=== PATIENT | female | born 1985 | race Caucasian/White ===

== ENCOUNTER → 2016-07-01 | Outpatient (CLI) | payer OTHER ==
[~2016-07-01] MED LIST: MTR600X PO; OXYC5TAB PO; PRENTAB26 PO
== END | disposition home or self-care (01) ==
LOC: C.LAB 14:15
PROVIDERS: ATTEND Obstetrics & Gynecology
DX: E28.8 Other ovarian dysfunction (principal)

== ENCOUNTER → 2016-08-01 | Outpatient (CLI) | payer OTHER | END | disposition home or self-care (01) | LOC: C.LAB 16:59 | PROVIDERS: ATTEND Obstetrics & Gynecology | DX: E28.8 Other ovarian dysfunction (principal) ==

== ENCOUNTER → 2016-08-27 | Outpatient (CLI) | payer OTHER | END | disposition home or self-care (01) | LOC: C.LAB 10:25 | PROVIDERS: ATTEND Obstetrics & Gynecology | DX: E28.8 Other ovarian dysfunction (principal) ==

== ENCOUNTER → 2016-09-21 | Outpatient (CLI) | payer OTHER | END | disposition home or self-care (01) | LOC: C.LAB 16:14 | PROVIDERS: ATTEND Obstetrics & Gynecology | DX: E28.8 Other ovarian dysfunction (principal) ==

== ENCOUNTER → 2016-10-20 | Outpatient (CLI) | payer OTHER | END | disposition home or self-care (01) | LOC: C.LAB 15:56 | PROVIDERS: ATTEND Obstetrics & Gynecology | DX: E28.8 Other ovarian dysfunction (principal) ==

== ENCOUNTER → 2016-11-14 | Outpatient (CLI) | payer OTHER | END | disposition home or self-care (01) | LOC: C.LAB 17:35 | PROVIDERS: ATTEND Obstetrics & Gynecology | DX: E28.8 Other ovarian dysfunction (principal) ==

== ENCOUNTER → 2016-12-06 | Outpatient (CLI) | payer OTHER | END | disposition home or self-care (01) | LOC: C.LAB 19:10 | PROVIDERS: ATTEND Obstetrics & Gynecology | DX: E28.8 Other ovarian dysfunction (principal) ==

== ENCOUNTER → 2016-12-06 | Outpatient (CLI) | payer OTHER ==
[2016-12-06 19:53] LABS: HEMATOCRIT 40.4 % (37-47); MEAN CELL VOLUME 83.5 fL (80-100); MEAN CORPUSCULAR HEMOGLOBIN 26.9 pg (25-34); MEAN CORPUSCULAR HGB CONC 32.2 g/dl (32-36); MEAN PLATELET VOLUME 11.3 fL (7.4-10.4); PLATELET COUNT 231 K/uL (130-400); RED BLOOD COUNT 4.84 M/uL (4.2-5.4); WHITE BLOOD COUNT 4.75 K/uL (4.8-10.8)
[2016-12-06 20:58] LABS: RUBELLA SCREEN IgG (AT CCH) IMMUNE (IMMUNE)
[2016-12-07 07:26] LABS: ESTIMATED AVERAGE GLUCOSE 111 mg/dl; HA1C FLAG Normal (Normal)
[2016-12-09 17:19] LABS: HEPATITIS C VIRAL RNA BY PCR <15 NOT DETECTED IU/ML (<15); HEPATITIS C VIRAL RNA(LOG) PCR <1.18 NOT DETECTED LOG IU/ML (<1.18)
== END | disposition home or self-care (01) ==
LOC: C.LAB 19:06
PROVIDERS: ATTEND Obstetrics & Gynecology Reproductive Endocrinology
DX: Z01.83 Encounter for blood typing (principal); Z31.41 Encounter for fertility testing; Z11.59 Encounter for screening for other viral diseases; Z11.3 Encounter for screening for infections with a predominantly sexual mode of transmission; Z11.4 Encounter for screening for human immunodeficiency virus [HIV]; E28.2 Polycystic ovarian syndrome; Z13.0 Encounter for screening for diseases of the blood and blood-forming organs and certain disorders involving the immune mechanism; Z13.21 Encounter for screening for nutritional disorder

== ENCOUNTER → 2017-01-02 | Outpatient (CLI) | payer OTHER | END | disposition home or self-care (01) | LOC: C.LAB 16:24 | PROVIDERS: ATTEND Obstetrics & Gynecology | DX: E28.8 Other ovarian dysfunction (principal) ==

== ENCOUNTER → 2017-03-15 | Outpatient (CLI) | payer OTHER ==
--- NOTE | 2017-03-15 11:41 | HISTORY & PHYSICAL EXAMINATION ---
DATE OF ADMISSION: 03/15/2017 INDICATIONS FOR SURGERY: Pelvic pain, irregular bleeding. PREOPERATIVE DIAGNOSIS: Dysfunctional uterine bleeding. POSTOPERATIVE DIAGNOSIS: Spillage right side and filling of the left fallopian tube. PROCEDURE: Hysterosalpingogram. SURGEON: Dr. Stanley. ESTIMATED BLOOD LOSS: None. OPERATIVE FINDINGS AND PROCEDURE: The patient was brought to the fluoroscopy unit. Cervix was visualized with a speculum. Cervix was then painted with Betadine solution. Anterior lip of the cervix was grasped with single tooth tenaculum. A sound was used to open up the endocervical canal, then an acorn cannula with hystersalpingogram dye was placed into the cervix and held there with a single tooth tenaculum to make a seal. Then under fluoroscopy, the dye was injected. The dye actually went slowly and under a lot of pressure we were able to see the right fallopian tube and it spilled. On the left side basically the whole fallopian tube filled but didn't quite spill. Following several efforts to get the tubes to spill with using pressure on the syringe the procedure was terminated. Instruments were removed. The patient tolerated the procedure well.
--- NOTE | 2017-03-15 11:44 | DIAGNOSTIC IMAGING REPORT ---
HYSTEROSALPINGOGRAM HISTORY: Infertility. FLUOROSCOPY TIME: 1.7 minutes. 7 fluoroscopic spot images. TECHNIQUE: The cervix was cannulated by the novelty dipper-metallographic technician and water soluble contrast was instilled into the uterus under fluoroscopic guidance. Multiple spot images were obtained. FINDINGS: The uterine cavity is normal in size, shape, and position. The fallopian tubes are patent and there is free peritoneal spill on the right. Probable free spill on the left.. IMPRESSION: Normal hysterosalpingogram. Electronically signed by: Andrea Mcnally M.D. 03/15/2017 11:43 AM Dictated Date/Time: 03/15/2017 11:42 AM
== END | disposition home or self-care (01) ==
LOC: C.RAD 11:02
PROVIDERS: ATTEND Obstetrics & Gynecology
DX: N97.9 Female infertility, unspecified (principal)

== ENCOUNTER → 2017-04-01 | Outpatient (CLI) | payer OTHER | END | disposition home or self-care (01) | LOC: C.LAB 07:45 | PROVIDERS: ATTEND Obstetrics & Gynecology | DX: Z34.81 Encounter for supervision of other normal pregnancy, first trimester (principal) ==

== ENCOUNTER → 2017-04-03 | Outpatient (CLI) | payer OTHER ==
[~2017-04-03] MED LIST changes: +CHOL100010
--- NOTE | 2017-04-07 11:17 | CODING QUERY NO DIAGNOSIS ---
TREATMENT RENDERED WITHOUT A DIAGNOSIS To promote full compliance with coding requirements relating to patient care, physician participation is requested in all cases of shingle cutter uncertainty. Please assist us with providing a diagnosis/symptom for the test(s) below: A diagnosis/symptom was not documented on your Order. A valid diagnosis/symptom is required to bill all insurances. Please remember that we are unable to code a diagnosis of rule out, probable, possible, questionable, or suspected. Tests that require a diagnosis from 04/03/17: * BETA HCG DIAGNOSIS: Provider Signature: Date: Thank you Sophie Villanueva [facility] Information Management Once completed, please kindly fax back to [phone] For questions please call [phone]
== END ==
LOC: C.LAB 07:51
PROVIDERS: ATTEND Obstetrics & Gynecology
DX: O00.90 Unspecified ectopic pregnancy without intrauterine pregnancy (principal)

== ENCOUNTER → 2017-04-05 | Outpatient (CLI) | payer OTHER ==
[~2017-04-05] MED LIST changes: -CHOL100010
== END | disposition home or self-care (01) ==
LOC: C.LAB 08:11
PROVIDERS: ATTEND Obstetrics & Gynecology
DX: Z34.81 Encounter for supervision of other normal pregnancy, first trimester (principal)

== ENCOUNTER → 2017-04-07 | Outpatient (CLI) | payer OTHER | END | disposition home or self-care (01) | LOC: C.LAB 08:15 | PROVIDERS: ATTEND Obstetrics & Gynecology | DX: O00.109 Unspecified tubal pregnancy without intrauterine pregnancy (principal) ==

== ENCOUNTER → 2017-04-10 | Outpatient (CLI) | payer OTHER | END | disposition home or self-care (01) | LOC: C.LAB 08:22 | PROVIDERS: ATTEND Obstetrics & Gynecology | DX: O00.109 Unspecified tubal pregnancy without intrauterine pregnancy (principal) ==

== ENCOUNTER → 2017-04-12 | Outpatient (CLI) | payer OTHER | END | disposition home or self-care (01) | LOC: C.LAB 07:18 | PROVIDERS: ATTEND Obstetrics & Gynecology | DX: O00.90 Unspecified ectopic pregnancy without intrauterine pregnancy (principal) ==

== ENCOUNTER → 2017-04-14 | Outpatient (CLI) | payer OTHER ==
[2017-04-14 10:56] LABS: BASO % 0.2 %; BASO ABS # 0.01 K/uL (0-0.2); EOS % 1.7 %; EOS ABS # 0.07 K/uL (0-0.5); HEMATOCRIT 38.4 % (37-47); HEMOGLOBIN 12.7 g/dL (12.0-16.0); LYMPH % 41.7 %; LYMPH ABS # 1.74 K/uL (1.2-3.4); MEAN CELL VOLUME 82.1 fL (80-100); MEAN CORPUSCULAR HEMOGLOBIN 27.1 pg (25-34); MEAN CORPUSCULAR HGB CONC 33.1 g/dl (32-36); MEAN PLATELET VOLUME 11.1 fL (7.4-10.4); MONO % 6.5 %; MONO ABS # 0.27 K/uL (0.11-0.59); NEUT % 49.9 %; NEUT ABS # 2.08 K/uL (1.4-6.5); PLATELET COUNT 229 K/uL (130-400); RED CELL DISTRIBUTION WIDTH CV 13.4 % (11.5-14.5); RED CELL DISTRIBUTION WIDTH SD 40.6 fL (36.4-46.3); WHITE BLOOD COUNT 4.17 K/uL (4.8-10.8)
[2017-04-14 11:11] LABS: ALBUMIN 3.4 gm/dl (3.4-5.0); ALT/SGPT 25 U/L (12-78); AST/SGOT 11 U/L (15-37); BLOOD UREA NITROGEN 8 mg/dl (7-18); CALCIUM 8.6 mg/dl (8.5-10.1); CARBON DIOXIDE 23 mmol/L (21-32); CREATININE 0.44 mg/dl (0.60-1.20); GLUCOSE 91 mg/dl (70-99); POTASSIUM 3.7 mmol/L (3.5-5.1); SODIUM 136 mmol/L (136-145)
[2017-04-14 11:21] LABS: ALKALINE PHOSPHATASE 39 U/L (45-117); TOTAL PROTEIN 7.2 gm/dl (6.4-8.2)
[2017-04-15 02:29] LABS: RAPID PLASMA REAGIN NONREACTIVE (NONREACT)
== END | disposition home or self-care (01) ==
LOC: C.LAB 08:28
PROVIDERS: ATTEND Obstetrics & Gynecology
DX: O00.90 Unspecified ectopic pregnancy without intrauterine pregnancy (principal); R41.89 Other symptoms and signs involving cognitive functions and awareness; R51 Headache; G57.11 Meralgia paresthetica, right lower limb; M54.2 Cervicalgia; R13.10 Dysphagia, unspecified

== ENCOUNTER → 2017-04-17 | Outpatient (CLI) | payer OTHER ==
[~2017-04-17] VITALS: Ht 162.6 cm; Wt 104.3 kg
[~2017-04-17] MED LIST changes: +CHOL100010; +METHOTREXATE SOD IM SCH
== END | disposition home or self-care (01) ==
LOC: C.LAB 18:17
PROVIDERS: ATTEND Obstetrics & Gynecology
DX: O00.90 Unspecified ectopic pregnancy without intrauterine pregnancy (principal)

== ENCOUNTER → 2017-04-18 | Outpatient (CLI) | payer OTHER ==
[~2017-04-18] MED LIST changes: -METHOTREXATE SOD IM SCH
[2017-04-18 17:26] LABS: HEMATOCRIT 40.3 % (37-47); HEMOGLOBIN 13.1 g/dL (12.0-16.0)
[2017-04-18 18:02] LABS: ALBUMIN 3.5 gm/dl (3.4-5.0); ALKALINE PHOSPHATASE 37 U/L (45-117); ALT/SGPT 19 U/L (12-78); AST/SGOT 9 U/L (15-37); TOTAL PROTEIN 7.4 gm/dl (6.4-8.2)
== END | disposition home or self-care (01) ==
LOC: C.LAB 17:05
PROVIDERS: ATTEND Obstetrics & Gynecology
DX: O00.90 Unspecified ectopic pregnancy without intrauterine pregnancy (principal)

== ENCOUNTER → 2017-04-19 | Day surgery (SDC) | payer OTHER ==
[~2017-04-19] VITALS: Ht 162.6 cm; Wt 97.0 kg
[~2017-04-19] MED LIST changes: +METHOTREXATE SOD IM SCH
[2017-04-19 11:13] VITALS: BP 111/59; PULSE 80; TEMP 36.9; O2SAT 98; Ht 162.6 cm; Wt 97.0 kg
--- NOTE | 2017-04-19 11:18 | HISTORY & PHYSICAL EXAMINATION ---
DATE OF ADMISSION: 04/19/2017 CHIEF COMPLAINT: Unruptured ectopic , left fallopian tube. HISTORY OF PRESENT ILLNESS: The patient is a 30-year-old 3, para 2. She has had 1 previous spontaneous AB. General health is complicated by polycystic ovarian syndrome. She is an infrequent ovulator. Present was achieved with a combination of Clomid and Femara. She has had serial beta hCGs going back to April 01. It should be noted that on 03/15/2017, she had a hysterosalpingogram, which was normal. Her beta units started out at 33 and they basically hovered ever since then. Presently, her progesterone levels are falling. Her beta units are in the range of about 250. She had an ultrasound done on 04/18/2017, which showed an area adjacent to the left ovary that appeared to be a gestational sac, which was 1 cm in diameter. There were no heartbeats. She is presently being admitted for outpatient methotrexate injection, calculated 15 mg per meters squared, dose calculated out to 109 mg. SOCIAL HISTORY: No history of smoking. No history of excessive alcohol intake. She is employed. FAMILY HISTORY: Mom is 58, has diabetes. Father 67, high blood pressure, heart disease, and she has 1 brother. REVIEW OF SYSTEMS: No history of headaches, ear infections, nosebleed, sore throats. PHYSICAL EXAMINATION: GENERAL: Well-developed, well-nourished 32-year-old female, alert, oriented x3 and cooperative in no acute distress, appears stated age. EYES: Conjunctivae are pink, sclerae white, no evidence of jaundice. EARS: Had normal light reflex bilaterally. NOSE: Had normal mucosa. Septum is midline. There were no polyps. THROAT: No erythema or evidence of infection. Teeth are in good state of repair. HEAD: Normocephalic, normal distribution of hair. NECK: Supple. Trachea midline. Thyroid is not enlarged. No adenopathy appreciated. HEART: Had regular rhythm. S1, S2 were normal. BREASTS: Normal. ABDOMEN: Soft and nontender. PELVIC: Cervix appeared normal. Uterus was top normal size. MUSCULOSKELETAL: Revealed no calf tenderness. IMPRESSIONS OF THIS CASE: Left-sided ectopic , unruptured. [facility]
== END | disposition home or self-care (01) ==
LOC: C.MTU 13:00
PROVIDERS: ATTEND Obstetrics & Gynecology
DX: O00.102 Left tubal pregnancy without intrauterine pregnancy (principal); E28.2 Polycystic ovarian syndrome; Z83.3 Family history of diabetes mellitus

== ENCOUNTER → 2017-04-27 | Outpatient (CLI) | payer OTHER ==
[~2017-04-27] MED LIST changes: -METHOTREXATE SOD IM SCH; -OXYC5TAB PO
== END | disposition home or self-care (01) ==
LOC: C.LAB 18:11
PROVIDERS: ATTEND Obstetrics & Gynecology
DX: O00.90 Unspecified ectopic pregnancy without intrauterine pregnancy (principal)

== ENCOUNTER → 2017-05-04 | Outpatient (CLI) | payer OTHER | END | disposition home or self-care (01) | LOC: C.LAB 16:58 | PROVIDERS: ATTEND Obstetrics & Gynecology | DX: O00.90 Unspecified ectopic pregnancy without intrauterine pregnancy (principal); Z3A.00 Weeks of gestation of pregnancy not specified ==

== ENCOUNTER → 2017-05-05 | Outpatient (CLI) | payer OTHER ==
--- NOTE | 2017-05-05 12:03 | DIAGNOSTIC IMAGING REPORT ---
BRAIN COMBO CLINICAL HISTORY: R41.89 Cognitive [id number] Unilateral [id number] posttraumatic headaches COMPARISON STUDY: No previous studies for comparison. TECHNIQUE: Utilizing a 1.5 Tonya magnet and dedicated coil, multiplanar, multiecho imaging of the brain was performed pre and postcontrast administration. IV administration of 10 mL of Gadavist contrast was uneventful. FINDINGS: Diffusion-weighted images show no evidence for an acute ischemic event. Signal characteristics of the cerebellar as well as cerebral hemispheres are unremarkable. Ventricular system is midline. Postcontrast images are negative for an enhancing lesion. The sella and suprasellar regions are unremarkable. Internal auditory canals are symmetric. Incidental note is made of mucous retention cysts of the sphenoid and maxillary sinuses bilaterally. IMPRESSION: 1. Normal MRI of the brain. 2. Mucous retention cysts of the sphenoid and maxillary sinuses bilaterally The above report was generated using voice recognition software. It may contain grammatical, syntax or spelling errors. Electronically signed by: Gurwinder Silva M.D. 05/05/2017 12:02 PM Dictated Date/Time: 05/05/2017 11:58 AM
== END | disposition home or self-care (01) ==
LOC: C.MRI 10:35
PROVIDERS: ATTEND Psychiatry & Neurology Neurology
DX: R41.89 Other symptoms and signs involving cognitive functions and awareness (principal); R51 Headache; J34.1 Cyst and mucocele of nose and nasal sinus

== ENCOUNTER → 2017-07-08 | Outpatient (CLI) | payer OTHER | END | disposition home or self-care (01) | LOC: C.LAB 12:46 | PROVIDERS: ATTEND Psychiatry & Neurology Neurology | DX: R53.83 Other fatigue (principal); E55.9 Vitamin D deficiency, unspecified ==

== ENCOUNTER → 2017-10-26 | Outpatient (CLI) | payer OTHER | END | disposition home or self-care (01) | LOC: C.LAB 14:54 | PROVIDERS: ATTEND Obstetrics & Gynecology | DX: E28.8 Other ovarian dysfunction (principal); E55.9 Vitamin D deficiency, unspecified ==

== ENCOUNTER 2019-03-22 15:49 | Inpatient (IN) ==
--- OUTSIDE RECORDS SUMMARY | 2019-03-22 15:52 | External Medical Summary | Continuity of Care Document ---
:1985 Author Name Gurinder Murillo, Provider Address Unavailable Unavailable , Care Team Providers Name Role Phone Junie Palencia III, M.D.. PNeris Unavailable [email or web address] SandraG Chidi Unavailable [email or web address] MAY, E Unavailable Unavailable Unavailable Unavailable Unavailable Problems History of delivery, currently p regnant in third trimester (V23.41) (O09.213) Obesity complicating peripregnancy, antepartum (649.13) (O99 .210) H/O section (V45.89) (Z98.891) with history of caesarean section, antepartum (654 .23) (O34.21) Meralgia paresthetica of right side (355.1) (G57.11) Neck pain (723.1) (M54.2) Anxiety (300.00) (F41.9) PCOS (polycystic ovarian syndrome) (256.4) (E28.2) Fatigue (780.79) (R53.83) Dysphagia, unspecified (787.20) (R13.10) Cognitive impairment (294.9) (R41.89) PTSD (post-traumatic stress disorder) (309.81) (F43.10) Unilateral headache (784.0) (R51) Vitamin D deficiency (268.9) (E55.9) Allergies and Adverse Reactions No Known Drug Allergies (Allergy) Medications Plus TABS; TAKE 1 TABLET DAILY. Refills: 0 Tums CHEW Refills: 0 Vitamin C CAPS; TAKE 1 CAPSULE Daily Refills: 0 Vitamin D3 1.25 MG (48252 UT) Oral Tablet; TAKE 1 TABL ET Weekly Talha MCKEON M.D. E. P. Start: 14-Apr-2017 Quantity: 4 Refills: 2 Vitamin D3 50 MCG (2000 UT) Oral Capsule; TAKE 2 CAPSULE Soha ly Refills: 0 Procedures History of Section Status: Comp leted Immunizations Tdap (Adacel) On: 28-Nov-2014 Lot #: [id number], SANOFI PASTEUR Influenza (Whole) On: 12-Dec-2014 15:01 Lot #: [id number], [employer]OFI PA[employer]UR Family History Unknown Family Member Family history of malignant neoplasm of Status: Active Comments: Family History breast (V16.3) (Z80.3) Brother Family history of autism (V17.0) (Z81.8) Status: Active Mother Family history of gestational diabetes (V18.0) (Z83.3) Statu s: Active Social History - Smoking Status Never smoker Plan of Treatment Planned Observations Planned Goals not documented Results No Known Results Results not documented Encounters Appointment; Akua Galloway PA-C 12-Jul-2017 16:00 Encounter Diagnosis: Problem not documented Appointment; Akua Galloway PA-C 12-May-2017 9:30 Encounter Diagnosis: Problem not documented Appointment; Cruz Palencia III, M.D. 12-Apr-2017 8:00 Encounter Diagnosis: Problem not documented
--- OUTSIDE RECORDS SUMMARY | 2019-03-22 15:52 | External Medical Summary | Continuity of Care Document ---
:1985 Author Name Gurinder Murillo, Provider Address Unavailable Unavailable , Care Team Providers Name Role Phone Junie Palencia III, M.D.. PNeris Unavailable [email or web address] Chidi Unavailable [email or web address] Junie MAY Unavailable Unavailable Unavailable Unavailable Unavailable Problems PCOS (polycystic ovarian syndrome) (256.4) (E28.2) Dysphagia, unspecified (787.20) (R13.10) Vitamin D deficiency (268.9) (E55.9) Fatigue (780.79) (R53.83) Anxiety (300.00) (F41.9) Neck pain (723.1) (M54.2) Meralgia paresthetica of right side (355.1) (G57.11) with history of caesarean section, antepartum (654 .23) (O34.21) H/O section (V45.89) (Z98.891) Obesity complicating peripregnancy, antepartum (649.13) (O99 .210) History of delivery, currently p regnant in third trimester (V23.41) (O09.213) Unilateral headache (784.0) (R51) PTSD (post-traumatic stress disorder) (309.81) (F43.10) Cognitive impairment (294.9) (R41.89) Allergies and Adverse Reactions No Known Drug Allergies (Allergy) Medications Tums CHEW Refills: 0 Vitamin C CAPS; TAKE 1 CAPSULE Daily Refills: 0 Vitamin D3 50 MCG (2000 UT) Oral Capsule; TAKE 2 CAPSULE Soha ly Refills: 0 Plus TABS; TAKE 1 TABLET DAILY. Refills: 0 Vitamin D3 1.25 MG (70757 UT) Oral Tablet; TAKE 1 TABL ET Weekly Talha MCKEON M.D. E. PNeris Start: 14-Apr-2017 Quantity: 4 Refills: 2 Procedures History of Section Status: Comp leted Immunizations Tdap (Adacel) On: 28-Nov-2014 Lot #: [id number], [employer]FI PA[employer]UR Influenza (Whole) On: 12-Dec-2014 15:01 Lot #: [id number], SANOFI PASTEUR Family History Unknown Family Member [...]
[2019-03-22 17:03] LABS: Partial Thromboplastin Ratio 0.9; Partial Thromboplastin Time 23.8 Seconds (21.0-31.0); Prothrombin Time 10.6 Seconds (9.0-12.0)
[2019-03-22 17:05] LABS: D Dimer 22390 ug/L FEU (0-500)
[2019-03-22 17:20] LABS: Basophils # (auto) 0.04 K/uL (0-0.2); Basophils % (auto) 0.5 %; Eosinophils # (auto) 0.18 K/uL (0-0.5); Eosinophils % (auto) 2.3 %; Hematocrit (blood only) 39.6 % (37-47); Hemoglobin 13.4 g/dL (12.0-16.0); Immature Granulocytes # (auto) 0.08 K/uL (0.00-0.02); Lymphocytes # (auto) 1.82 K/uL (1.2-3.4); Lymphocytes % (auto) 22.9 %; Mean Corpuscular Hemoglobin 26.7 pg (25-34); Mean Corpuscular Hgb Conc 33.8 g/dL (32-36); Mean Corpuscular Volume 78.9 fL (80-100); Mean Platelet Volume 10.2 fL (7.4-10.4); Monocytes # (auto) 0.45 K/uL (0.11-0.59); Monocytes % (auto) 5.7 %; Neutrophils # (auto) 5.39 K/uL (1.4-6.5); Neutrophils % (auto) 67.6 %; Platelet Count 185 K/uL (130-400); RDW Coefficient of Variation 13.3 % (11.5-14.5); RDW Standard Deviation 37.9 fL (36.4-46.3); Red Blood Count 5.02 M/uL (4.2-5.4); White Blood Count 7.96 K/uL (4.8-10.8)
[2019-03-22 17:45] LABS: Albumin Level 3.4 gm/dl (3.4-5.0); BUN Creatinine Ratio 14.1 (10-20); Calcium 8.8 mg/dl (8.5-10.1); Creatinine Clr Calc Pharmacy 146.1 ml/min; Est GFR (African American) 132.9; Est GFR (Non-African American) 114.7; Potassium 3.8 mmol/L (3.5-5.1)
--- NOTE | 2019-03-22 17:53 | Emergency Department Note ---
History of Present Illness General Chief complaint: Leg Injury/Pain Stated complaint: CRAMP IN THIGH AND CALF, WINDED Time Seen by Provider: 03/22/19 17:00 History of Present Illness Maximum Pain Intensity: 4 34-year-old female who presents to emergency department with complaint of shortn ess of breath, dyspnea on exertion and right lower extremity cramping. The patient reports that she started to develop intermittent nosebleeds approximately 2 to 3 weeks ago. She reports that this is abnormal for the patient. Around March 16, the patient reports developing a cramping sensation of the right inner thigh that lasted approximately 3 days, then completely resolved. The pain then was transferred to the right calf. The pain initially was an 8 out of 10, then started to improve to a 4 out of 10. After the 5 pain resolved, the patient then started to get shortness of breath and dyspnea on exertion. She reports that after walking up a full flight of stairs, she would have to stop and rest. This is also atypical for the patient. 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 She denies any oral contraceptive use. She has a remote history of CBD vaping for PTSD, however has not Vapes within the past year. She reports that her maternal grandfather did have a history of blood clots and stroke, otherwise is not aware of any other known family history of coagulopathies. The patient denies any swelling of the legs. She has noticed a sharp sensation of the right lateral chest region. She has not had any nausea or diaphoresis. The patient currently rates her overall discomfort a 4 out of 10. Home Medications Home Medications Medication Instructions Recorded Confirmed Type No Known Home Medications 03/22/19 03/22/19 History Allergies Allergy/AdvReac Type Severity Reaction Status Date / Time sesame seed Allergy Severe Anaphylaxis Verified 03/22/19 17:51 Past Med/Surg History Medical History History of PCOS PTSD (post-traumatic stress disorder) Pulmonary embolism Surgical History History of delivery Family History Other Diabetes Dyslipidemia Hypertension Stroke Social History Preferred Language: Serbian Communication Ability: Effective [employer] Tube Bender Required: No Beliefs That Will Affect Care: None marital status: Current Living Situation: Spouse current occupational status: employed Feels Safe at Home: Yes Smoking Status: Never smoker Hx Alcohol Use: No Hx Substance Use: No Review of Systems 10 system review was performed and was negative except for pertinent positives and negatives as indicated in history of present illness Physical Exam Vital Signs Vital Signs - 24 hr 03/22/19 15:51 03/22/19 17:15 03/22/19 17:30 Temperature 36.6 C Temperature Source Oral Pulse Rate 121 H 105 H 107 H Pulse Rate from SpO2 Sensor 105 H 108 H Pulse Rhythm Regular Regular Pulse Strength Normal Respiratory Rate 22 22 29 H Respiratory Effort / Characteristics Non-Labored Spontaneous Non-Labored Spontaneous Respiratory Depth Normal Normal Respiratory Pattern Regular Regular Blood Pressure 107/78 128/89 129/93 Blood Pressure Mean 87 98 98 Blood Pressure Position Sitting Pulse Oximetry 96 92 93 Oxygen Delivery Method Room Air Room Air Room Air Sepsis Recent Fever Within 48 Hours No Sepsis New/Unexplained Change in Mental Status No Sepsis Action Taken by Nursing No Action Required 03/22/19 18:47 03/22/19 19:00 03/22/19 19:30 Temperature Temperature Source Pulse Rate 109 H 105 H 106 H Pulse Rate from SpO2 Sensor 106 H 107 H 107 H Pulse Rhythm Pulse Strength Respiratory Rate 16 21 17 Respiratory Effort / Characteristics Respiratory Depth Respiratory Pattern Blood Pressure 110/88 144/78 H 134/77 Blood Pressure Mean 97 113 106 Blood Pressure Position Pulse Oximetry 92 95 94 Oxygen Delivery Method Room Air Room Air Room Air Sepsis Recent Fever Within 48 Hours Sepsis New/Unexplained Change in Mental Status Sepsis Action Taken by Nursing CONSTITUTIONAL: Healthy and well nourished. Alert and oriented X 3. Patient does not appear in any acute distress on exam. HEENT: Normocephalic, atraumatic. Pupils equal, round and reactive. No scleral icterus or conjunctival injection/pallor. NECK: Full active range of motion without discomfort. No JVD or carotid bruits. LYMPHATICS: No cervical chain adenopathy. RESPIRATORY: Clear to auscultation bilaterally with no wheezing, crackles, rhonchi or stridor. She does not appear in any acute respiratory distress. CARDIOVASCULAR: Regular rate and rhythm with no murmurs, rubs or gallops. GASTROINTESTINAL: Bowel sounds present in all quadrants. Abdomen is protuberant but soft and nontender to palpation. No bruits on auscultation. MUSCULOSKELETAL: Full range of motion of all joints without discomfort. Examination of the lower extremities does not show any obvious edema. Pedal pulses are intact. INTEGUMENTARY: No rash or other significant dermatologic conditions noted. HEMATOLOGIC: No ecchymosis or petechiae. PSYCHIATRIC: Positive affect. NEUROLOGIC: No focal neurologic deficits noted. Course Course Patient history and physical exam were performed. Nurse's notes were reviewed. Vital signs were reviewed. The patient is tachycardic in triage at 107 bpm, and tachypneic at 29 respirations per minute with an O2 saturation of 93% on room air. She is otherwise normotensive and afebrile. IV access was established, and labs were ordered and drawn per nursing protocol prior to my exam. I was contacted by our ED leases and land supervisor that the patient's d-dimer was nearly 23,000. After performing an examination on the patient, I did recommend CT angiography and bilateral lower extremity Dopplers to rule out PE and DVTs of the lower ext remities. The patient was in agreement. Cardiac monitoring was ordered. An ECG showed a sinus tachycardia without any other concerning findings. Review of labs shows a normal white count with bandemia and no left shift. PT, PTT and INR are normal. D-dimer was significantly elevated at 22,390. CMP was normal. Troponin was mildly elevated at 0.052. An ECG showed a sinus tachycardia without other concerning findings. CT angiography of the chest shows extensive bilateral pulmonary emboli with right heart strain. Possible left upper lobe pulmonary infarct is also noted. Bilateral lower extremity Dopplers shows a right lower extremity DVT. Left lower extremity is clear. The patient was administered IV heparin. The case was further discussed with Dr. Nettles, ED attending physician, who recommended hospitalist consultation, and possible ICU admission. The case was then further discussed with Dr. Galo, who agrees with admission. Please see her dictation for further treatment and final disposition. Administered Medications Heparin Sodium/Dextrose (Heparin Sodium/Dextrose) 25,000 units in 500 mls @ 30 mls/hr IV .[id number] [facility]; Protocol Stop: 04/21/19 18:29 Last Titration: 03/22/19 22:06 Dose: 1,500 units/hr, 30 mls/hr Documented by: [id number] Cosigned by: [id number] Admin: 03/22/19 19:40 Dose: 1,400 units/hr, 28 mls/hr Documented by: [id number] Cosigned by: [id number] Ioversol (Optiray 320 125ml) 118 ml IV ONCE PRN PRN Reason: Interaction Checking Stop: 03/26/19 18:01 Last Admin: 03/22/19 18:03 Dose: 118 ml Documented by: [id number] Discontinued Medications Heparin Sodium (Porcine) (Heparin Iv Bolus) Confirm Administered Dose 10,000 units .ROUTE .STK-MED ONE Stop: 03/22/19 19:36 Last Admin: 03/22/19 19:40 Dose: 5,000 units Documented by: [id number] Cosigned by: [id number] Heparin Sodium/Dextrose () 1 ea IV NOW STA; Protocol Stop: 03/22/19 18:26 Last Admin: 03/22/19 22:06 Dose: 1 ea Documented by: [id number] Critical Care Time Critical Care Time: Yes Total Critical Care Time: 45 I have personally spent greater than 45 minutes of critical care time in the direct management of this patient. This includes bedside care, interpretation of diagnostic studies, and testing, discussion with consultants, patient, and family members, and other required patient management activities. This 45 minutes is in excess of all separately billable procedures. The patient does have multiple pulmonary emboli that have created right heart strain and possible pulmonary infarct. ReSound does show evidence for a right lower extremity DVT as well. The patient was administered IV heparin. The patient did remain hemodynamically stable with stable oxygen saturation while in the emergency department. Medical Decision Making Medical Records Attestation: I reviewed the patient's medical records. Home Medications Current Medication List: was personally reviewed by il Laboratory Data Attestation: I reviewed the patient's lab results. Result diagrams: 03/22/19 17:07 03/22/19 17:07 Lab Results 03/22/19 03/22/19 03/22/19 Range/Units 16:30 17:07 17:07 WBC 7.96 (4.8-10.8) K/uL RBC 5.02 (4.2-5.4) M/uL Hgb 13.4 (12.0-16.0) g/dL Hct 39.6 (37-47) % MCV 78.9 L (80-100) fL MCH 26.7 (25-34) pg MCHC 33.8 (32-36) g/dL RDW Std Deviation 37.9 (36.4-46.3) fL RDW Coeff of Bhupinder 13.3 (11.5-14.5) % Plt Count 185 (130-400) K/uL MPV 10.2 (7.4-10.4) fL Immature Gran % (Auto) 1.0 % Neut % (Auto) 67.6 % Lymph % (Auto) 22.9 % Buchanan % (Auto) 5.7 % Eos % (Auto) 2.3 % Baso % (Auto) 0.5 % Immature Gran # (Auto) 0.08 H (0.00-0.02) K/uL Neut # (Auto) 5.39 (1.4-6.5) K/uL Lymph # (Auto) 1.82 (1.2-3.4) K/uL Buchanan # (Auto) 0.45 (0.11-0.59) K/uL Eos # (Auto) 0.18 (0-0.5) K/uL Baso # (Auto) 0.04 (0-0.2) K/uL PT 10.6 (9.0-12.0) Seconds INR 1.0 (0.9-1.1) APTT 23.8 (21.0-31.0) Seconds PTT Ratio 0.9 D-Dimer [id number] H* (0-500) ug/L FEU Sodium 139 (136-145) mmol/L Potassium 3.8 (3.5-5.1) mmol/L Chloride 108 H (98-107) mmol/L Carbon Dioxide 22 (21-32) mmol/L Anion Gap 9.0 (3-11) BUN 10 (7-18) mg/dl Creatinine 0.67 (0.6-1.2) mg/dl Est Cr Clr Drug Dosing 146.1 ml/min Est GFR ( Amer) 132.9 Est GFR (Non-Af Amer) 114.7 BUN/Creatinine Ratio 14.1 (10-20) Glucose 87 (70-99) mg/dl Calcium 8.8 (8.5-10.1) mg/dl Total Bilirubin 0.5 (0.2-1) mg/dl AST 14 L (15-37) U/L ALT 19 (12-78) U/L Alkaline Phosphatase 82 (45-117) U/L Troponin I 0.052 H* (0-0.045) ng/ml Total Protein 7.8 (6.4-8.2) gm/dl Albumin 3.4 (3.4-5.0) gm/dl Globulin 4.4 H (2.5-4.0) gm/dl Albumin/Globulin Ratio 0.8 L (0.9-2) Imaging Data Attestation: I personally reviewed and interpreted this imaging study as follows: My Impression: CT angiography of the chest shows extensive bilateral pulmonary emboli with right heart strain and possible left upper lobe pulmonary infarct. Bilateral lower extremity venous Dopplers shows a right lower extremity DVT. Left lower extremity is clear. Radiologist reports were reviewed. Radiologist's Impression: CHEST CTA for PULMONARY ARTERIES CT DOSE: 801.26 mGy.cm HISTORY: Dyspnea TECHNIQUE: Multiaxial CT images of the chest were performed following the intravenous administration of contrast to evaluate the pulmonary arteries. Maximal intensity projection images were also obtained. A dose lowering technique was utilized adhering to the principles of ALARA. COMPARISON STUDY: None. FINDINGS: Normal caliber thoracic aorta with no evidence for dissection. Flattening of the interventricular septum suggestive of mild right-sided heart strain. No pleural or pericardial effusions. The main pulmonary artery is slightly dilated 3.2 cm. Multiple bilateral pulmonary emboli involving the bilat eral distal main pulmonary arteries and majority of the lobar and segmental pulmonary arteries. The visualized liver, spleen, and adrenal glands unremarkable. Normal esophagus. No mediastinal or hilar lymphadenopathy. No fractures within the visualized osseous structures. No pneumothorax. The central airways are patent. Small groundglass nodules within the left upper lobe posteriorly on image 162. These measure up to 6 mm. IMPRESSION: 1. Extensive bilateral pulmonary emboli as described above with associated right heart strain. 2. Small cluster of groundglass nodules within the left upper lobe posteriorly. This could represent mild inflammatory/infectious change or developing pulmonary infarct. US venous doppler LE BI HISTORY: Pain. Edema. RLE pain, positive dimer - probable DVTs/PE COMPARISON STUDY: None. FINDINGS: Findings consistent with acute deep venous thrombosis of the right superficial femoral vein, with involvement of the popliteal as well as posterior tibial veins. IMPRESSION: Acute deep venous thrombosis right leg involving superficial femoral vein extending to the venous structures of the right calf. ECG Data Attestation: I personally reviewed and interpreted this ECG as follows: Indication: + SOB/dyspnea and + weakness Rate (beats per minute): 107 Rhythm: + sinus tachycardia ECG Intervals/blocks: + Normal QRS, + Normal QT and + Normal OH ECG Kaleva: + Normal ECG ST segments: + Normal ST segments Comparison ECG Date: no prior available Blood Pressure Blood Pressure Findings: Normal blood pressure MDM Narrative Patient presents to the emergency department with complaint of right lower extremity pain, shortness of breath and weakness. Work-up today shows evidence for multiple bilateral pulmonary emboli, right heart strain and possible left upper lobe pulmonary infarct. The patient also has a positive troponin. Patient also has a right lower extremity DVT on ultrasound. I do not suspect congestive heart failure, myocarditis or endocarditis. Impression & Plan Bilateral pulmonary embolism, Acute deep vein thrombosis (DVT) of right lower extremity Discharge Plan Visit Data *Final* Discharge Date/Time: 03/22/19 20:27 Chief Complaint: Leg Injury/Pain Stated Complaint: CRAMP IN THIGH AND CALF, WINDED Other Complaint: Shortness of Breath/Dyspnea ED Provider: Rai Nettles ED Midlevel Provider: Colton Downey Discharge Problem: Bilateral pulmonary embolism, Acute deep vein thrombosis (DVT) of right lower extremity Patient Disposition: Admitted As Inpatient Discharge Instructions Interventions: ED Discharge Assessment Last Done: 03/22/19 20:27
[2019-03-22 17:54] LABS: Albumin Globulin Ratio 0.8 (0.9-2); Bilirubin,Total 0.5 mg/dl (0.2-1); Globulin 4.4 gm/dl (2.5-4.0); Total Protein 7.8 gm/dl (6.4-8.2); Troponin I 0.052 ng/ml (0-0.045)
[2019-03-22] MEDS ORDERED: OPTIRAY 320 125ml IV PRN (18:02)
--- NOTE | 2019-03-22 18:18 | CT Scan Report ---
CHEST CTA for PULMONARY ARTERIES CT DOSE: 801.26 mGy.cm HISTORY: Dyspnea TECHNIQUE: Multiaxial CT images of the chest were performed following the intravenous administration of contrast to evaluate the pulmonary arteries. Maximal intensity projection images were also obtaine d. A dose lowering technique was utilized adhering to the principles of ALARA. COMPARISON STUDY: None. FINDINGS: Normal caliber thoracic aorta with no evidence for dissection. Flattening of the interventr icular septum suggestive of mild right-sided heart strain. No pleural or pericardial effusions. The m ain pulmonary artery is slightly dilated 3.2 cm. Multiple bilateral pulmonary emboli involving the bi lateral distal main pulmonary arteries and majority of the lobar and segmental pulmonary arteries. Th e visualized liver, spleen, and adrenal glands unremarkable. Normal esophagus. No mediastinal or ruben r lymphadenopathy. No fractures within the visualized osseous structures. No pneumothorax. The centra l airways are patent. Small groundglass nodules within the left upper lobe posteriorly on image 162. These measure up to 6 mm. IMPRESSION: 1. Extensive bilateral pulmonary emboli as described above with associated right heart strain. 2. Small cluster of groundglass nodules within the left upper lobe posteriorly. This could represent mild inflammatory/infectious change or developing pulmonary infarct. ACT 112: Negative or not required by law. Electronically signed by: Andrea Mcnally M.D. 03/22/2019 6:17 PM
--- NOTE | 2019-03-22 18:49 | Ultrasound Report ---
US venous doppler LE BI HISTORY: Pain. Edema. RLE pain, positive dimer - probable DVTs/PE COMPARISON STUDY: None. FINDINGS: Findings consistent with acute deep venous thrombosis of the right superficial femoral vein , with involvement of the popliteal as well as posterior tibial veins. IMPRESSION: Acute deep venous thrombosis right leg involving superficial femoral vein extending to the venous str uctures of the right calf. ACT 112: Negative or not required by law. The above report was generated using voice recognition software. It may contain grammatical, syntax or spelling errors. Electronically signed by: Gurwinder Silva M.D. 03/22/2019 6:48 PM
[2019-03-22] MEDS ORDERED: HEPARIN SOD (PORCINE) 1000 UNIT/ML 10 ML VIAL ONE (19:35)
[2019-03-22] MEDS: HEPARIN SODIUM/DEXTROSE 25,000 UNITS/500 ML BAG IV SCH (19:40)
--- NOTE | 2019-03-22 20:27 | History & Physical Report ---
Date of Service March 22, 2019 Assessment & Plan (1) Pulmonary embolism: Shayla Keyes is a 34yo C female presenting with bilateral PE, right heart strain. Patient afebrile, HD stable, no respiratory distress. -Admit to PCU -Cardiac monitoring -Check hypercoag panel -Heparin gtt -PO agent to be started in the AM -Low threshold for lytics, MICU transfer F/E/N - Heplock. Electrolytes WNL. Regular diet as tolerated Ppx - Heparin gtt as above Code - Full Dispo - Admit to PCU History of Present Illness Chief Complaint: PE Primary Care Provider: Nithin Warren Aleena Keyes is a pleasant 34yo C female presenting with PE. She reports severe cramping in her right groin on 03/16/19 that she thought was a pulled muscle. The groin pain lasted two days then she began to have pain and cramping in her calf. Then she became severely SOB and dyspneic with minimal exertion. She reports a near syncopal event after walking up stairs. No prior history of DVT/PE. No known family history of VTE/PE, however, patient does not know a lot of details about her family. Not on OCPs/hormone therapy. 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 She states that she has never been able to donate blood because she clots half way through the donation process. CT-PA with extensive bilateral PEs with right heart strain. Patient is afebrile, tachycardic, adequate oxygenation on room air. No respiratory distress. No complaints of pain. ER Course: Heparin gtt Allergies Allergy/AdvReac Type Severity Reaction Status Date / Time sesame seed Allergy Severe Anaphylaxis Verified 03/22/19 17:51 Home Medications Home Medications Medication Instructions Recorded Confirmed Type No Known Home Medications 03/22/19 03/22/19 History Past Med/Surg History Medical History (Updated 03/22/19 @ 20:28 by Radha Galo DO) History of PCOS PTSD (post-traumatic stress disorder) Pulmonary embolism Surgical History History of delivery Family History (Updated 03/22/19 @ 20:24 by Radha Galo DO) Other Diabetes Dyslipidemia Hypertension Stroke Social History (Updated 03/22/19 @ 20:24 by Radha Galo DO) Preferred Language: Salvadorean marital status: Current Living Situation: Spouse and Family current occupational status: employed Feels Safe at Home: Yes Smoking Status: Former smoker Hx Alcohol Use: Yes Alcohol Intake Frequency: Holidays/Special Occasions Hx Substance Use: Yes Review of Systems Review of Systems: All systems reviewed & are unremarkable except as noted in HPI & below Physical Exam Physical Exam: General: patient resting comfortably, NAD, non-toxic in appearance, AA&O x 4 Skin: warm, dry, intact, no rashes or lesions HEENT: NC/AT, PERRL, EOMI, anicteric sclera, conjunctiva without injection, external ear normal to inspection and nontender, nares patent, moist mucus m embranes, dentition intact, no oropharyngeal lesions, neck supple, trachea midline, no LAD, no thyromegaly, no JVD Heart: +S1/S2, regular, no m/r/g Lungs: equal air entry bilaterally, no rales/rhonchi/wheezes Abd: +BS, soft, NT/ND, no masses/organomegaly/ascites Ext: warm, 2+ pulses in UE/LE bilaterally, no clubbing/cyanosis, 1+ pitting edema, tenderness in her calf muscles bilaterally Neuro: nonfocal, patient AA&O x 4, speech intact, no facial droop, moving all extremities on command with equal strength 5/5 Results & Data Vital Signs (Past 12 Hours) Vital Signs Temp Pulse Resp BP Pulse Ox 03/22/19 19:30 106 H 17 134/77 94 03/22/19 19:00 105 H 21 144/78 H 95 03/22/19 18:47 109 H 16 110/88 92 03/22/19 17:30 107 H 29 H 129/93 93 03/22/19 17:15 105 H 22 128/89 92 03/22/19 15:51 36.6 C 121 H 22 107/78 96 Laboratory Results Lab Results 03/22/19 03/22/19 03/22/19 Range/Units 16:30 17:07 17:07 WBC 7.96 (4.8-10.8) K/uL RBC 5.02 (4.2-5.4) M/uL Hgb 13.4 (12.0-16.0) g/dL Hct 39.6 (37-47) % MCV 78.9 L (80-100) fL MCH 26.7 (25-34) pg MCHC 33.8 (32-36) g/dL RDW Std Deviation 37.9 (36.4-46.3) fL RDW Coeff of Bhupinder 13.3 (11.5-14.5) % Plt Count 185 (130-400) K/uL MPV 10.2 (7.4-10.4) fL Immature Gran % (Auto) 1.0 % Neut % (Auto) 67.6 % Lymph % (Auto) 22.9 % [place] % (Auto) 5.7 % Eos % (Auto) 2.3 % Baso % (Auto) 0.5 % Immature Gran # (Auto) 0.08 H (0.00-0.02) K/uL Neut # (Auto) 5.39 (1.4-6.5) K/uL Lymph # (Auto) 1.82 (1.2-3.4) K/uL [place] # (Auto) 0.45 (0.11-0.59) K/uL Eos # (Auto) 0.18 (0-0.5) K/uL Baso # (Auto) 0.04 (0-0.2) K/uL PT 10.6 (9.0-12.0) Seconds INR 1.0 (0.9-1.1) APTT 23.8 (21.0-31.0) Seconds PTT Ratio 0.9 D-Dimer 94705 H* (0-500) ug/L FEU Sodium 139 (136-145) mmol/L Potassium 3.8 (3.5-5.1) mmol/L Chloride 108 H (98-107) mmol/L Carbon Dioxide 22 (21-32) mmol/L Anion Gap 9.0 (3-11) BUN 10 (7-18) mg/dl Creatinine 0.67 (0.6-1.2) mg/dl Est Cr Clr Drug Dosing 146.1 ml/min Est GFR ( Amer) 132.9 Est GFR (Non-Af Amer) 114.7 BUN/Creatinine Ratio 14.1 (10-20) Glucose 87 (70-99) mg/dl Calcium 8.8 (8.5-10.1) mg/dl Total Bilirubin 0.5 (0.2-1) mg/dl AST 14 L (15-37) U/L ALT 19 (12-78) U/L Alkaline Phosphatase 82 (45-117) U/L Troponin I 0.052 H* (0-0.045) ng/ml Total Protein 7.8 (6.4-8.2) gm/dl Albumin 3.4 (3.4-5.0) gm/dl Globulin 4.4 H (2.5-4.0) gm/dl Albumin/Globulin Ratio 0.8 L (0.9-2) Diagnostic Findings CHEST CTA for PULMONARY ARTERIES CT DOSE: 801.26 mGy.cm HISTORY: Dyspnea TECHNIQUE: Multiaxial CT images of the chest were performed following the intravenous administration of contrast to evaluate the pulmonary arteries. Maximal intensity projection images were also obtained. A dose lowering technique was utilized adhering to the principles of ALARA. COMPARISON STUDY: None. FINDINGS: Normal caliber thoracic aorta with no evidence for dissection. Flattening of the interventricular septum suggestive of mild right-sided heart strain. No pleural or pericardial effusions. The main pulmonary artery is slightly dilated 3.2 cm. Multiple bilateral pulmonary emboli involving the bilateral distal main pulmonary arteries and majority of the lobar and segmental pulmonary arteries. The visualized liver, spleen, and adrenal glands u nremarkable. Normal esophagus. No mediastinal or hilar lymphadenopathy. No fractures within the visualized osseous structures. No pneumothorax. The central airways are patent. Small groundglass nodules within the left upper lobe posteriorly on image 162. These measure up to 6 mm. IMPRESSION: 1. Extensive bilateral pulmonary emboli as described above with associated right heart strain. 2. Small cluster of groundglass nodules within the left upper lobe posteriorly. This could represent mild inflammatory/infectious change or developing pulmonary infarct. ACT 112: Negative or not required by law. Electronically signed by: Andrea Mcnally M.D. 03/22/2019 6:17 PM Dictated: 03/22/19 1812 US venous doppler LE BI HISTORY: Pain. Edema. RLE pain, positive dimer - probable DVTs/PE COMPARISON STUDY: None. FINDINGS: Findings consistent with acute deep venous thrombosis of the right superficial femoral vein, with involvement of the popliteal as well as posterior tibial veins. IMPRESSION: Acute deep venous thrombosis right leg involving superficial femoral vein extending to the venous structures of the right calf. ACT 112: Negative or not required by law. The above report was generated using voice recognition software. It may contain grammatical, syntax or spelling errors. Electronically signed by: Gurwinder Silva M.D. 03/22/2019 6:48 PM Dictated: 03/22/191846 Transcribed: 03/22/191846 Code Status & VTE Plan Code Status Full VTE Prophylaxis Plan VTE Prophylaxis will be ordered: Yes PG Care Time/CCT Total # of Minutes Spent Total Time Spent with Patient: Total time spent is greater than 50% in coordination of care (as documented) at patient's floor/unit and/or counseling patient: (1) Pulmonary embolism Pulmonary embolism type: unspecified Chronicity: acute Acute cor pulmonale presence: without acute cor pulmonale Qualified Code(s): I26.99 - Other pulmona ry embolism without acute cor pulmonale
[2019-03-22] MEDS ORDERED: DOCUSATE SODIUM 100 MG CAP PO PRN (21:00)
[2019-03-22] MEDS ORDERED: ACETAMINOPHEN 325 MG TAB PO PRN (21:00)
[2019-03-23 02:23] LABS: Partial Thromboplastin Ratio 1.3; Partial Thromboplastin Time 33.9 Seconds (21.0-31.0)
[2019-03-23 02:31] LABS: BUN Creatinine Ratio 20.6 (10-20); Blood Urea Nitrogen 14 mg/dl (7-18); Calcium 8.8 mg/dl (8.5-10.1); Carbon Dioxide 24 mmol/L (21-32); Chloride 105 mmol/L (98-107); Creatinine Clr Calc Pharmacy 157.5 ml/min; Est GFR (African American) 133.6; Est GFR (Non-African American) 115.3; Glucose 90 mg/dl (70-99); Potassium 3.7 mmol/L (3.5-5.1); Sodium 137 mmol/L (136-145)
[2019-03-23 02:35] LABS: Troponin I < 0.015 ng/ml (0-0.045)
[2019-03-23 02:36] LABS: Basophils # (auto) 0.02 K/uL (0-0.2); Basophils % (auto) 0.2 %; Eosinophils # (auto) 0.16 K/uL (0-0.5); Hematocrit (blood only) 40.4 % (37-47); Hemoglobin 13.4 g/dL (12.0-16.0); Immature Granulocytes # (auto) 0.04 K/uL (0.00-0.02); Immature Granulocytes % (auto) 0.5 %; Lymphocytes # (auto) 3.01 K/uL (1.2-3.4); Lymphocytes % (auto) 36.9 %; Mean Corpuscular Hemoglobin 27.1 pg (25-34); Mean Corpuscular Hgb Conc 33.2 g/dL (32-36); Mean Corpuscular Volume 81.8 fL (80-100); Mean Platelet Volume 10.6 fL (7.4-10.4); Monocytes # (auto) 0.34 K/uL (0.11-0.59); Monocytes % (auto) 4.2 %; Neutrophils # (auto) 4.58 K/uL (1.4-6.5); Neutrophils % (auto) 56.2 %; Platelet Count 234 K/uL (130-400); RDW Coefficient of Variation 13.3 % (11.5-14.5); RDW Standard Deviation 39.9 fL (36.4-46.3); Red Blood Count 4.94 M/uL (4.2-5.4); White Blood Count 8.15 K/uL (4.8-10.8)
[2019-03-23] MEDS ORDERED: HEPARIN IV BOLUS 7,000 UNITS in SYRINGE 0 ML IV ONE (02:45)
[2019-03-23 09:57] LABS: Partial Thromboplastin Ratio 2.1
[2019-03-23 10:02] LABS: Partial Thromboplastin Time 57.4 Seconds (21.0-31.0)
[2019-03-23] MEDS: HEPARIN SODIUM/DEXTROSE 25,000 UNITS/500 ML BAG IV SCH ×2 (10:16→22:11)
[2019-03-23] MEDS ORDERED: WARFARIN SOD 10 MG TAB PO ONE (12:11)
--- NOTE | 2019-03-23 12:45 | Electrocardiogram Report ---
Test Reason : Blood Pressure : / mmHG Vent. Rate : 107 BPM Atrial Rate : 107 BPM P-R Int : 150 ms QRS Dur : 076 ms QT Int : 364 ms P-R-T Axes : 058 053 038 degrees QTc Int : 485 ms Sinus tachycardia Otherwise normal ECG No previous ECGs available Confirmed by Angelo Jain ([id number]) on 03/23/2019 12:44:59 PM Referred By: REFERRED SELF Confirmed By:Angelo Jain
--- NOTE | 2019-03-23 20:05 | Hospitalist Progress Note ---
Date of Service March 23, 2019 Assessment & Plan (1) Pulmonary embolism: Shayla Keyes is a 34yo C female presenting with bilateral PE, right heart strain. Patient afebrile, HD stable, no respiratory distress. -Admit to PCU -Cardiac monitoring -Check hypercoag panel -Heparin gtt -Main issue is that patient cannot take a NOAC due to her elevated BMI. -Will need to be on coumadin. Will likely lesley to bridge with lovenox as patient wants to be discharged at the earliest possible date. -Concern is that patient has also been very tachycardic while she has been here. -Will give 10 mg of coumadin. will followup trend of INR. Once INR begins to change, and once we are able to anticpate home dose of coumadin, patient can be discharged with lovenox bridge and coumadin. F/E/N - Heplock. Electrolytes WNL. Regular diet as tolerated Ppx - Heparin gtt as above Code - Full Dispo - Admit to PCU Subjective 34 yo female reports feeling well. She states she continues to have pain in her right thigh and calf. Review of Systems Review of Systems: All systems reviewed & are unremarkable except as noted in HPI & below Physical Exam Physical Exam: General: patient resting comfortably, NAD, non-toxic in appearance, AA&O x 4 Skin: warm, dry, intact, no rashes or lesions HEENT: NC/AT, PERRL, EOMI, anicteric sclera, conjunctiva without injection, external ear normal to inspection and nontender, nares patent, moist mucus membranes, dentition intact, no oropharyngeal lesions, neck supple, trachea midline, no LAD, no thyromegaly, no JVD Heart: +S1/S2, regular, no m/r/g Lungs: equal air entry bilaterally, no rales/rhonchi/wheezes Abd: +BS, soft, NT/ND, no masses/organomegaly/ascites Ext: warm, 2+ pulses in UE/LE bilaterally, no clubbing/cyanosis, 1+ pitting edema, tenderness in her calf muscles bilaterally Neuro: nonfocal, patient AA&O x 4, speech intact, no facial droop, moving all extremities on command with equal strength 5/5 Results & Data Vital Signs (Past 12 Hours) Vital Signs Temp Pulse Resp BP Pulse Ox 03/23/19 18:53 36.7 C 96 H 20 127/85 93 03/23/19 15:52 36.8 C 92 H 20 113/77 95 03/23/19 11:48 36.6 C 97 H 18 114/78 92 PG Care Time/CCT Total # of Minutes Spent Total Time Spent with Patient: Total time spent is greater than 50% in coordination of care (as documented) at patient's floor/unit and/or counseling patient: (1) Pulmonary embolism Acute cor pulmonale presence: without acute cor pulmonale Chronicity: acute Pulmonary embolism type: unspecified Qualified Code(s): I26.99 - Other pulmonary embolism without acute cor pulmonale
[2019-03-24 06:41] LABS: INR 1.1 (0.9-1.1); Partial Thromboplastin Ratio 1.7; Prothrombin Time 10.9 Seconds (9.0-12.0)
[2019-03-24 06:46] LABS: Partial Thromboplastin Time 46.4 Seconds (21.0-31.0)
[2019-03-24] MEDS ORDERED: WARFARIN SOD 10 MG TAB PO ONE (10:59)
[2019-03-24] MEDS: HEPARIN SODIUM/DEXTROSE 25,000 UNITS/500 ML BAG IV SCH (12:00)
--- NOTE | 2019-03-24 13:07 | Electrocardiogram Report ---
Test Reason : Blood Pressure : / mmHG Vent. Rate : 093 BPM Atrial Rate : 093 BPM P-R Int : 158 ms QRS Dur : 086 ms QT Int : 410 ms P-R-T Axes : 057 045 041 degrees QTc Int : 509 ms Normal sinus rhythm Prolonged QT Abnormal ECG When compared with ECG of 22-MAR-2019 16:00, No significant change was found Confirmed by Angelo Jain ([id number]) on 03/24/2019 1:06:56 PM Referred By: REFERRED SELF Confirmed By:Angelo Jain
[2019-03-24] MEDS ORDERED: ENOXAPARIN 1.5 MG/KG SQ SCH (21:00)
[2019-03-24] MEDS: ENOXAPARIN 150 MG/ML SYR SQ SCH (21:20)
--- NOTE | 2019-03-24 23:39 | Hospitalist Progress Note ---
Date of Service March 24, 2019 Assessment & Plan (1) Pulmonary embolism: Shayla Keyes is a 34yo C female presenting with bilateral PE, right heart strain. Patient afebrile, HD stable, no respiratory distress. -Admit to PCU -Cardiac monitoring -Check hypercoag panel -Heparin gtt -Main issue is that patient cannot take a NOAC due to her elevated BMI. HR has improved. -Will need to be on coumadin. Will likely lesley to bridge with lovenox as patient wants to be discharged at the earliest possible date. -Concern is that patient has also been very tachycardic while she has been here. -Will give 10 mg of coumadin on 03/23. -repeated 10 mg of coumadin on 03/24 will followup trend of INR. Once INR begins to change, and once we are able to anticpate home dose of coumadin, patient can be discharged with lovenox bridge and coumadin. F/E/N - Heplock. Electrolytes WNL. Regular diet as tolerated Ppx - Heparin gtt as above Code - Full Dispo - Admit to PCU Subjective Patient has no new complaints. Over night patient reports feeling more SOB, and having chest pain, which was pleuritic in nature. However this has subsided, and has not occured today. Review of Systems Review of Systems: All systems reviewed & are unremarkable except as noted in HPI & below Physical Exam Physical Exam: General: patient resting comfortably, NAD, non-toxic in appearance, AA&O x 4 Skin: warm, dry, intact, no rashes or lesions HEENT: NC/AT, PERRL, EOMI, anicteric sclera, conjunctiva without injection, external ear normal to inspection and nontender, nares patent, moist mucus membranes, dentition intact, no oropharyngeal lesions, neck supple, trachea midline, no LAD, no thyromegaly, no JVD Heart: +S1/S2, regular, no m/r/g Lungs: equal air entry bilaterally, no rales/rhonchi/wheezes Abd: +BS, soft, NT/ND, no masses/organomegaly/ascites Ext: warm, 2+ pulses in UE/LE bilaterally, no clubbing/cyanosis, 1+ pitting edema, tenderness in her calf muscles bilaterally Neuro: nonfocal, patient AA&O x 4, speech intact, no facial droop, moving all extremities on command with equal strength 5/5 Results & Data Vital Signs (Past 12 Hours) Vital Signs Temp Pulse Resp BP Pulse Ox 03/24/19 18:52 36.7 C 95 H 16 127/83 97 03/24/19 14:57 36.7 C 90 16 129/82 94 PG Care Time/CCT Total # of Minutes Spent Total Time Spent with Patient: Total time spent is greater than 50% in coordination of care (as documented) at patient's floor/unit and/or counseling patient: (1) Pulmonary embolism Acute cor pulmonale presence: without acute cor pulmonale Chronicity: acute Pulmonary embolism type: unspecified Qualified Code(s): I26.99 - Other pulmonary embolism without acute cor pulmonale
[2019-03-25 06:53] LABS: INR 1.1 (0.9-1.1); Prothrombin Time 11.5 Seconds (9.0-12.0)
[2019-03-25] MEDS: ENOXAPARIN 150 MG/ML SYR SQ SCH (09:06)
--- NOTE | 2019-03-25 09:46 | Discharge Summary ---
Date of Service March 25, 2019 Admission HPI Per Admitting Provider Aleena Keyes is a pleasant 34yo C female presenting with PE. She reports severe cramping in her right groin on 03/16/19 that she thought was a pulled muscle. The groin pain lasted two days then she began to have pain and cramping in her calf. Then she became severely SOB and dyspneic with minimal exertion. She reports a near syncopal event after walking up stairs. No prior history of DVT/PE. No known family history of VTE/PE, however, patient does not know a lot of details about her family. Not on OCPs/hormone therapy. 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 She states that she has never been able to donate blood because she clots half way through the donation process. CT-PA with extensive bilateral PEs with right heart strain. Patient is afebrile, tachycardic, adequate oxygenation on room air. No respiratory distress. No complaints of pain. ER Course: Heparin gtt Principal Diagnosis Bilateral pulmonary emboli in setting of right leg DVT Discharge Exam Constitutional well developed, well nourished and + obese Eyes PERRL, conjunctivae normal, anicteric sclerae ENMT external ear and nose normal, oropharynx normal Neck trachea midline, no thyromegaly Respiratory normal respiratory effort, lungs clear to auscultation Cardiovascular RRR, no murmur, no edema Gastrointestinal (Abdomen) normal bowel sounds, soft, nontender, no hepatosplenomegaly Musculoskeletal no cyanosis or clubbing, extremities motor strength 5/5 Skin no rashes, warm and dry Neurologic patellar DTR's 2+ bilat, sensation intact and PERRL, EOMI, accommodation nl, no face palsy, no dysarthria Psychiatric A+Ox3, euthymic affect Lymphatic no cervical or axillary lymphadenopathy Discharge Data Allergies Allergy/AdvReac Type Severity Reaction Status Date / Time sesame seed Allergy Severe Anaphylaxis Verified 03/22/19 17:51 Consultations 03/22/19 19:49 ED Decision to Admit Stat 03/22/19 21:00 Consult Case Management - Discharge Planning Routine Ordered Studies 03/22/19 17:40 CT angio chest PE protocol Stat US venous doppler LE BI Stat Hospital Course (1) Pulmonary embolism: associated with right leg DVT which is the cause of PE risk factors include obesity, hypercoagulable panel sent out, results should be back next week vital signs improved, no longer tachycardic, no chest pain, breathing well on room air treated initially with Lovenox 129mg q12, started on Coumadin could not use NOAC due to BMI received Coumadin 10mg on 03/23 and 03/24, INR only 1.1 d/w pharmacy, will use Coumadin 15mg on 03/25 and 03/26 she will continue on the Lovenox, provided her with 5 day supply follow up with Dr. 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 (2) Acute deep vein thrombosis (DVT) of right lower extremity: extending from superficial femoral to veins of calf will treat the same with Lovenox BID and Coumadin 15mg daily x 2 days until seen by coagulation clinic on 03/27 Total Time Total Time Spent Total Time Spent (In Minutes): 45 minutes spoke with patient and for 25 minutes, spoke with her pharmacy over the phone for 10 minutes Total Time Includes: Examination of the Patient, Discharge Planning, Medication Reconciliation and Communication With Other Providers (coagulation clinic) Discharge Plan Discharge Items Patient Disposition: Home - Self-Care Reason For Visit: PE Discharge Diagnosis: Pulmonary Emboli Condition on Discharge: Good Goals: continue Lovenox and Coumadin for pulmonary emboli follow up with the coagulation clinic on Monday03/27/19 at 9am Activity: Per Instructions section Exercise/Sports: Gradually increase as tolerated Driving/Machine Use: Resume 1 day after discharge Weightbearing: Full weightbearing Non-emergency contact: Primary Care Provider Call non-emergency contact if: you have any medication questions, your symptoms worsen and you have a fever Follow-up/Referrals: Hyacinth Ralph MD, PhD [Pathologist] - 03/27/19 9:00 am (An appointment has been made on your behalf with the [facility]. Please call the clinic at [phone] with any questions or concerns. ) Nithin Warren [Primary Care Provider] - Diet: Regular Addtl Attending Provider Instructions: Medications: - LOVENOX: take 130mg every 12 hours, next dose due this evening, will give you 10 total doses with a refill if needed - COUMADIN: take 15mg today and tomorrow, then follow up on Mon morning Pulmonary emboli and right leg DVT treated with heparin, Lovenox injections so that you are fully anticoagulated started on coumadin for chronic anticoagulation plan is to use the Lovenox 129mg every 12 hours for 5 days for the Coumadin, the coag clinic wants you to use 15mg today and tomorrow and they will give you further instructions on Mon based on your INR as discussed, the Lovenox and coumadin will make you more prone to bleeding and bruising FOLLOW UP - coagulation clinic on 03/27 at 9am Pending Studies at Discharge: Yes Studies:: hypercoagulable studies Stand-Alone Forms: My [facility] [place] Valves, Smoking Cessation Medications and DC Order Prescriptions: New enoxaparin [Lovenox] 150 mg/mL Syringe 129 mg subcut Q12 5 Days Qty: 8.6 RF: 0 warfarin [Coumadin] 5 mg tablet 15 mg PO UD 30 Days Qty: 90 RF: 1 No Action No Known Home Medications RF: 0 Discharge Orders: Discharge Order (Routine); Ordered 03/25/19 Ordered By: Willi Portillo Admission Data Admit Date/Time: 03/22/19 19:59 Attending Provider: Willi Portillo Admit Provider: Radha Galo Primary Care Provider: Nithin Warren Other Providers: Radha Galo Other Interventions: Discharge Summary Assessment (RN) Last Done: 03/25/19 09:48 DC Date/Time DO NOT enter until pt leaves facility: 03/25/19 10:15
== END 2019-03-25 10:15 | disposition home or self-care (01) | DRG 176 ==
LOC: ED 15:49 → SUATTDRO 19:59 → 2S 19:59